=== PATIENT | male | born 1980 | race Caucasian/White ===

== ENCOUNTER 2020-02-28 06:26 | Emergency (ER) | payer SELFPAY ==
[~2020-02-28] VITALS: Ht 193 cm; Wt 147.3 kg
[2020-02-28] MEDS ORDERED: OXYcodone/APAP 5/325MG TABLET ONE (08:14)
[2020-02-28] MEDS ORDERED: LORazepam 1MG TABLET ONE (08:14)
--- NOTE | 2020-02-28 08:15 | NUR ---
NOTIFIED TRISHA GAINES THAT WE ARE UNABLE TO GET THE FB OUT OF THE R EAR AND UNABLE TO SEE IT BECAUSE PATIENT HAS A LOT OF PAIN WITH OTOSCOPE EXAM. PERCOCET AND ATIVAN ORDERED AND GIVEN.
[2020-02-28] MEDS ORDERED: LORazepam 1MG TABLET PO ONE (08:30)
[2020-02-28] MEDS ORDERED: OXYcodone/APAP 5/325MG TABLET PO ONE (08:30)
[2020-02-28 11:14] VITALS: BP 118/81
--- NOTE | 2020-02-28 11:21 | NUR ---
DR. BLACK AT BEDSIDE. LUNCH TRAY ORDERED. AWAITING ENT ARRIVAL TO REMOVE FB FROM R EAR.
--- NOTE | 2020-02-28 12:10 | NUR ---
TASK RN: PT PROVIDED W/ LUNCH TRAY. AWAITING ENT ARRIVAL.
--- NOTE | 2020-02-28 12:20 | NUR ---
TASK RN: LORA MCKEON AT BEDSIDE.
--- NOTE | 2020-02-28 13:05 | NUR ---
Patient given discharge instructions and they have confirmed that they understand the instructions. Patient ambulatory with steady gait.
== END 2020-02-28 13:06 | disposition home or self-care (01) ==
LOC: ED 06:39
DX: T16.1XXA Foreign body in right ear, initial encounter (principal); H60.11 Cellulitis of right external ear; W45.8XXA Other foreign body or object entering through skin, initial encounter; Y93.89 Activity, other specified; Y92.89 Other specified places as the place of occurrence of the external cause; Y99.8 Other external cause status
CPT/HCPCS: 69200; 99284